=== PATIENT | female | born 1990 | race Caucasian/White ===

== ENCOUNTER 2021-01-26 10:53 | Emergency (ER) | payer OTHER, MEDICAID, SELFPAY ==
[2021-01-26 11:07] VITALS: BP 118/63; PULSE 85; RESP 16; TEMP 36.5; O2SAT 97; BMI 24.7
--- NOTE | 2021-01-26 11:37 | ED.HA ---
HPI - Headache General Chief Complaint: Headache Stated Complaint: severe head pain, drilling/pulse feeling in scalp Time Seen by Provider: 01/26/21 11:29 Source: patient Limitations: no limitations History of Present Illness HPI Narrative: Patient is an otherwise healthy 30-year-old female who is here for evaluation of left-sided headache. Patient states that approximately 1 year ago she sustained a head injury. Was transported to the emergency department by EMS. She is unsure if she received any imaging at the time. Since that time she has had occasional left-sided sharp head discomfort that she normally takes Tylenol for. States that last evening she had in character the same head discomfort that she has had in the past but this time it is lasted longer. She has not taken any Tylenol for it. She denies any other associated symptoms. She does describe the headache as ?severe ? Related Data Home Medications Medication Instructions Recorded Confirmed levonorgestrel [Mirena] 52 mg INTRAU #0 10/04/17 Allergies Allergy/AdvReac Type Severity Reaction Status Date / Time No Known Drug Allergies Allergy Verified 01/26/21 11:44 Review of Systems Constitutional Constitutional: Denies fever(s) and Reports headache(s) Eyes Eyes: Denies change in vision ENT Ears, Nose, Mouth, and Throat: Denies vertigo, Denies dizziness, Reports headache(s), Denies neck pain, Denies disequilibrium and Denies sinus pressure Cardiovascular Cardiovascular: Reports system reviewed and no additional complaints, except as documented Respiratory Respiratory: Reports system reviewed and no additional complaints, except as documented Gastrointestinal Gastrointestinal: Reports system reviewed and no additional complaints, except as documented, Denies nausea and Denies vomiting Musculoskeletal Musculoskeletal: Denies neck pain Integumentary/Breasts Skin/Breast: Reports system reviewed and no additional complaints, except as documented Neurologic Neurologic: Denies confusion, Denies vertigo, Denies dizziness, Reports headache(s) and Denies disequilibrium Psychiatric Psychiatric: Denies confusion Hematologic/Lymphatic Hematologic/Lymphatic: Reports system reviewed and no additional complaints, except as documented Allergic/Immunologic Allergic/Immunologic: Reports system reviewed and no additional complaints, except as documented Patient History Medical History Concussion Social History lives independently: Yes Exam Initial Vital Signs Initial Vital Signs: Vital Signs Temperature 97.7 F 01/26/21 11:07 Pulse Rate 85 01/26/21 11:07 Respiratory Rate 16 01/26/21 11:07 Blood Pressure 118/63 01/26/21 11:07 Pulse Oximetry 97 01/26/21 11:07 Const General: cooperative and comfortable Limitations: mental status not altered HENMT Head: normal to inspection and normocephalic Resp Effort & Inspection: normal respiratory effort Auscultation: clear to auscultation bilaterally Cardio Rate: regular rate Rhythm: regular rhythm GI Inspection: non-distended Palpation: soft Skin Lesions: no lesions Rashes: no rashes Neuro General: patient alert, patient awake and patient oriented x3 Cranial Nerves: CN's II-XI intact bilaterally Cognition: normal cognition Speech: speech normal Motor: muscle tone normal throughout Sensory Exam: no sensory deficits noted Extrem General: normal to inspection and capillary refill normal Psych Appearance: grossly normal and well kempt Course Orders Ordered: ED Orders 01/26/21 11:40 CT head/brain wo con Stat Discontinued Medications Acetaminophen (Acetaminophen 325 Mg Tablet) 650 mg PO NOW ONE Stop: 01/26/21 11:39 Last Admin: 01/26/21 11:45 Dose: 650 mg Documented by: BRIDGET Vital Signs Vital signs: Vital Signs - 8 hr 01/26/21 11:07 Temperature 97.7 F Pulse Rate 85 Respiratory Rate 16 Blood Pressure 118/63 Pulse Oximetry 97 MDM - Headache Imaging Data CT scan - head: Radiologist's Impression: [address] [id number] Scan ReportSigned Patient: Chata Silveira BMR#: [id number]: 1990Acct:[id number]/Sex: 30 / FDate of Service: 01/26/21Loc: EDAccession Number: [id number] Procedure: CT head/brain wo con Ordering Provider: Lex Garcia D.O. PROCEDURE: CT HEAD/BRAIN WO CON INDICATIONS: Severe headache after head injury TECHNIQUE: Noncontrast 4.5 mm thick angled axial sections acquired from the foramen magnum to the vertex, with coronal and sagittal reformats. For radiation dose reduction, the following was used: automated exposure control, adjustment of mA and/or kV according to patient size. COMPARISON: None. FINDINGS: Image quality: Bilateral hayley bullosa are incidentally noted. CSF spaces: Basal cisterns are patent. No extra-axial fluid collections. Ventricles are normal in size and shape. Brain: No midline shift. No intracranial masses or hemorrhage. Moreno-white matter interface is normal. Skull and face: Calvarium and visualized facial bones are intact, without suspicious lesions. Sinuses: Visualized sinuses and mastoids are clear. IMPRESSION: No acute intracranial hemorrhage is seen. No acute intracranial process is seen. No displaced calvarial fracture is seen. Dictated by: Cornelius Borges M.D. on 01/26/2021 at 11:07 Approved by: Cornelius Borges M.D. on 01/26/2021 at 11:08 [facility] Narrative Medical decision making narrative: Patient has a normal neurologic exam. She has the same headache that she has had off and on for the past year only worse today. Her head CT is unremarkable. This was done because she reports that as a severe headache. I have low suspicion for subarachnoid hemorrhage. Low suspicion for meningitis. Afebrile. The Tylenol that she received here in the emergency department did take the edge off per her report. Will discharge patient home with return precautions. She expressed understanding and agreement. Discharge Plan Departure Patient Disposition: Home Clinical Impression: Headache Instructions: DI for Postconcussion Syndrome, DI for Headache Activity Restrictions/Additional Instructions: I recommend that you talk with your primary doctor about the indications for referral to see a concussion specialist. Continue all of your medications as directed. Return to the emergency department for any new or worsening symptoms Prescriptions: No Action levonorgestrel [Mirena] 1 EACH intrauterine device 52 mg INTRAU Qty: 0 RF: 0
--- NOTE | 2021-01-26 11:40 | DI.CT.S_ITS ---
PROCEDURE: CT HEAD/BRAIN WO CON INDICATIONS: Severe headache after head injury TECHNIQUE: Noncontrast 4.5 mm thick angled axial sections acquired from the foramen magnum to the vertex, with coronal and sagittal reformats. For radiation dose reduction, the following was used: automated exposure control, adjustment of mA and/or kV according to patient size. COMPARISON: None. FINDINGS: Image quality: Bilateral hayley bullosa are incidentally noted. CSF spaces: Basal cisterns are patent. No extra-axial fluid collections. Ventricles are normal in size and shape. Brain: No midline shift. No intracranial masses or hemorrhage. Moreno-white matter interface is normal. Skull and face: Calvarium and visualized facial bones are intact, without suspicious lesions. Sinuses: Visualized sinuses and mastoids are clear. IMPRESSION: No acute intracranial hemorrhage is seen. No acute intracranial process is seen. No displaced calvarial fracture is seen. Dictated by: Cornelius Borges M.D. on 01/26/2021 at 11:07 Approved by: Cornelius Borges M.D. on 01/26/2021 at 11:08
[2021-01-26] MEDS: ACETAMINOPHEN 325 MG TABLET 650 MG PO (11:45)
== END 2021-01-26 12:44 | disposition home or self-care (01) ==
PROVIDERS: Emergency Provider Emergency Medicine; Family Provider Obstetrics & Gynecology
DX: R51.9 Headache, unspecified (principal)
CPT/HCPCS: 70450; 99284